=== PATIENT | male | born 1955 | race Caucasian/White ===

== ENCOUNTER 2019-04-24 18:59 | Inpatient (IN) | payer OTHER ==
[~2019-04-24] VITALS: Ht 165.1 cm; Wt 66.2 kg
[2019-04-24 19:18] VITALS: BP 129/95
[2019-04-24] MEDS ORDERED: SODIUM CHLORIDE FLUSH 10 ML SYR IVF STA (19:25)
--- NOTE | 2019-04-24 19:30 | NUR ---
EKG PERFORMED IN TRIAGE ROOM
--- NOTE | 2019-04-24 21:48 | NUR ---
PT AMBULATED TO BED 06.
--- NOTE | 2019-04-24 21:52 | NUR ---
64/M PRESENTED TO ED BIB SELF ACCOMPANIED BY . A/O X4 PERSON PLACE TIME AND EVENT. C/O CHEST PAIN, ABDOMINAL PAIN X LAST NIGHT 6/10 PAIN. HEADACHE X 30 MINS AGO 10/10 PAIN. PT STATES THAT HE ATE LENTIL SOUP, HE BEGAN TO HAVING MID CHEST PAIN RADIATING TO ABDOMEN. PT TOOK MYLANTA LAST NIGHT WITH NO RELIEF. PT TOOK PEPCID BUT NO RELIEF. PT DENIES FEVER, SOB, N/V/D. FULL CLEAR SPEECH, NO FACIAL ASYMMETRY, AMBULATED WITH STEADY GAIT. NO SIGNS OF DISTRESS. MED HX HTN, HLD. RX ATENOLOL. DENIES ALLERGIES. WILL CONTINUE TO MONITOR.
--- NOTE | 2019-04-24 22:02 | NUR ---
LAB AT BEDSIDE
[2019-04-24 22:42] LABS: BASOPHILS % (AUTO) 0.3 % (0.0-2.0); EOSINOPHILS % (AUTO) 0.4 % (0.0-4.0); HEMATOCRIT 49.3 % (36-52); HEMOGLOBIN 16.3 g/dL (12.0-18.0); LYMPHOCYTES # (AUTO) 1.3 K/uL (2.0-11.5); MEAN CORPUSCULAR HEMOGLOBIN 30 pg (27-31); MEAN CORPUSCULAR HGB CONC 33 g/dL (33-37); MEAN CORPUSCULAR VOLUME 90.5 fL (80-94); MONOCYTES # (AUTO) 1.3 K/uL (0.8-1.0); MONOCYTES % (AUTO) 11.3 % (1.7-9.3); PLATELET COUNT (AUTO) 179 K/uL (140-450); RED BLOOD CELL COUNT(AUTO) 5.45 MIL/uL (4.20-6.10); WHITE BLOOD COUNT (AUTO) 11.6 K/uL (4.8-10.8)
[2019-04-24 22:54] LABS: ANION GAP 12.5 (8-16); CARBON DIOXIDE 27.8 mmol/L (21-32); POTASSIUM 4.3 mmol/L (3.5-5.1)
[2019-04-24 23:01] LABS: ALBUMIN 3.7 g/dL (3.4-5.0)
[2019-04-24] MEDS ORDERED: ATEN50TA8 PO (23:43)
[2019-04-25] MEDS ORDERED: ASPIRIN 81 MG TAB.CHEW PO ONE (00:10)
--- NOTE | 2019-04-25 00:18 | NUR ---
RECEIVED REPORT FROM MARI VILLA. PT RESTING IN BED, IN STABLE CONDITION AT THIS TIME.
[2019-04-25] MEDS ORDERED: MORPHINE SULFATE 4 MG/ML SYR IVP PRN (01:05)
[2019-04-25] MEDS ORDERED: HEPARIN PER PHARMACY MC PRN (01:05)
[2019-04-25] MEDS ORDERED: MORPHINE SULFATE 2 MG/ML SYR IVP PRN (01:05)
[2019-04-25] MEDS ORDERED: LORazepam 2 MG/ML VIAL IVP PRN (01:05)
[2019-04-25] MEDS ORDERED: ONDANSETRON 4 MG/2 ML VIAL IVP PRN (01:05)
--- NOTE | 2019-04-25 01:25 | NUR ---
Patient will be admitted to care of CUBA GOVEA. Admited to TELE. Will go to room 111B. Belongings list completed. Report to CANDELARIA GUERRA. VSS. IN STABLE CONDITION. AMBULATED TO BED WITH STEADY GAIT.
--- NOTE | 2019-04-25 01:45 | NUR ---
ADMITTED THIS 64 YEAR OLD MALE FROM ER PER IVÁN WITH CC OF CHEST PAIN, AMBULATED TO BED WITH STEADY GAIT, ASSESSMENT DONE, AAOX4, VITAL SIGNS STABLE, DENIES CHEST PAIN BUT COMPLAINING OF HEADACHE, WILL MEDICATE PRN, ORIENTED TO ROOM AND CALL LIGHT, PLAN OF CARE DISCUSS, SAFETY MEASURES IN PLACE, PER PT HE WANTS HIS WALLET CONTAINING MONEY AND CARD TO BE PUT IN A SAFE, ADMITTING MADE AWARE, CALL LIGHT WITHIN REACH.
[2019-04-25 02:00] VITALS: BP 127/82
[2019-04-25] MEDS: ACETAMINOPHEN 325 MG TAB PO PRN ×2 (02:14→14:01)
--- NOTE | 2019-04-25 02:30 | NUR ---
PT MEDICATED WITH TYLENOL PO FOR HEADACHE, PT CHANGED HIS MIND IN REGARDS TO HIS WALLET, HE WANTS TO KEEP IT TO HIMSELF AND WILL GIVE IT TO HIS WHEN SHE COMES BACK, ALL NEEDS ATTENDED.
[2019-04-25] MEDS: hePARIN / DEXT 5% PREMIX 250 ML IV SCH ×2 (02:48→14:01)
--- NOTE | 2019-04-25 03:00 | NUR ---
HEPARIN DRIP STARTED AT 8ML/H, PTT TO BE DRAWN AT 0848, MONITORED CLOSELY.
[2019-04-25 04:00] VITALS: BP 102/73
--- NOTE | 2019-04-25 04:00 | NUR ---
PT SLEEPING, EASILY AROUSABLE, VITAL SIGNS STABLE, DENIES CHEST PAIN, HEPARIN DRIP ON GOING, MONITORED CLOSELY.
--- NOTE | 2019-04-25 07:10 | NUR ---
PT AWAKE, NO SIGNS OF DISTRESS, BEDSIDE REPORT GIVEN TO MARI DEJESUS FOR CONTINUITY OF CARE.
--- NOTE | 2019-04-25 07:10 | NUR ---
RECEIVED BEDSIDE REPORT FROM MARI GAONA. PT STABLE, AWAKE, ALERT AND ORIENTED X4. NO SIGNS OF DISTRESS NOTED, DENIES PAIN OR SOB. NO REDNESS, SWELLING, OR INFLAMMATION NOTED ON IV SITE. HEPARIN DRIP RUNNING AT 8 ML/HR. CALL PÉREZ WITHIN REACH. BED IN LOWEST POSITION. SAFETY MEASURES IN PLACE. PLAN OF CARE REVIEWED.
[2019-04-25 08:00] VITALS: BP 119/87
--- NOTE | 2019-04-25 08:24 | NUR ---
PATIENT HAS BEEN SCREENED AND CATEGORIZED MODERATE NUTRITION RISK. PATIENT WILL BE SEEN WITHIN 3-5 DAYS OF ADMISSION. 04/27/[address]
[2019-04-25] MEDS ORDERED: ATENOLOL 50 MG TAB PO SCH (09:00)
--- NOTE | 2019-04-25 09:43 | NUR ---
ADMINISTERED SCHEDULED MEDICATION, PT TOLERATED WELL. WILL CONTINUE TO MONITOR. DR VALDEZ AT THE BEDSIDE.
--- NOTE | 2019-04-25 10:00 | NUR ---
CALLED [facility] SPOKE WITH NICOLAS , REGARDING THE TRANSFER ,SHE STATED ONCE WE GIVE THE AUTH WILL BE READY TO ACCEPT PT.
--- NOTE | 2019-04-25 10:15 | NUR ---
CALLED LAB TO FOLLOW UP REGARDING PT'S PTT. PER HILDA, LAB IS STILL PENDING. WILL FOLLOW UP AGAIN.
[2019-04-25] MEDS ORDERED: ATI2I IVP (11:27)
[2019-04-25] MEDS ORDERED: Heparin Per Pharmacy MC (11:27)
[2019-04-25] MEDS ORDERED: HEPA500056 IV (11:27)
[2019-04-25] MEDS ORDERED: MORP2SOL18 IVP (11:27)
[2019-04-25] MEDS ORDERED: ACET-1182 PO (11:27)
[2019-04-25] MEDS ORDERED: ATEN50TA2 PO (11:27)
[2019-04-25] MEDS ORDERED: HEPA-133 IV (11:27)
[2019-04-25] MEDS ORDERED: ASPI81CT95 PO (11:27)
[2019-04-25] MEDS ORDERED: ONDA2SOL45 IVP (11:27)
--- NOTE | 2019-04-25 11:45 | NUR ---
VINCENT MORA FROM [facility] WILL CALL BACK FOR AUTHORIZATION
[2019-04-25 12:00] VITALS: BP 112/85
--- NOTE | 2019-04-25 12:00 | NUR ---
VITAL SIGNS TAKEN, PT STABLE. FAMILY AT THE BEDSIDE.
--- NOTE | 2019-04-25 13:46 | NUR ---
PTT LAB JUST CAME BACK, 25.6. HEPARIN BOLUS 4,000 UNITS GIVEN AND HEPARIN DRIP RATE CHANGED TO 10.6 ML/HR PER PROTOCOL. WILL CONTINUE TO MONITOR. NO SIGNS OF BLEEDING NOTED.
--- NOTE | 2019-04-25 13:58 | NUR ---
I RECEIVED A CALL FROM VINCENT NAIR OF [facility] TO GO TO [facility] AIRPL[facility] FIRST OFFICER ,PACKAGE WORKER WILL BE DR SHRUTHI FREDERICK AUTH FOR [facility] [id number] AND FOR [facility] AUTH [id number] .ARRANGED TRANSPORT WITH [facility] TRIMMER OPERATOR THREE KNIFE TIME WITH IN ONE HOUR. NOTIFIED MARI HERRERA.
--- NOTE | 2019-04-25 14:10 | NUR ---
PTT ORDERED TODAY 04/25/19 TO BE DONE AT 1946 PER HEPARIN DRIP PROTOCOL.
--- NOTE | 2019-04-25 14:30 | NUR ---
REPORT GIVEN TO SHANT FROM CARDIAC NATUROPATHIC PHYSICIAN AT [facility]. IMAGING CD INCLUDED IN TRANSPORT FOLDER.
--- NOTE | 2019-04-25 15:00 | NUR ---
D/C INSTRUCTIONS AND PAPERWORK GIVEN. PT AND PT'S DAUGHTER ADONIS VERBALIZED UNDERSTANDING. QUESTIONS AND CONCERNS WERE ADDRESSED. IV KEPT INTACT DUE TO PT IS TRANSFERRING TO [facility]. PT STABLE, AAOX4, DENIES PAIN OR SOB, AMBULATES WITH STEADY GAIT, COMMUNICATES APPROPRIATELY WITH STAFF. SKIN INTACT, PT REFUSED PNEUMONIA VACCINE, FLU VACCINE RECEIVED IN 2019. PER PT, HE HAS ALL OF BELONGINGS, DAUGHTER AT BEDSIDE AWARE. PT PICKED UP BY [facility] TO BE TAKEN TO CARDIAC WASTE EXAMINER AT [facility].
[2019-04-26] MEDS ORDERED: ASPIRIN 81 MG TAB.CHEW PO SCH (09:00)
== END 2019-04-25 15:00 | disposition short-term general hospital (02) | DRG 282 ==
LOC: MED 18:59 → MTU 04-25 01:07
PROVIDERS: ADMIT Internal Medicine Pulmonary Disease; ATTEND Internal Medicine Pulmonary Disease
DX: I21.4 Non-ST elevation (NSTEMI) myocardial infarction (principal); I25.10 Atherosclerotic heart disease of native coronary artery without angina pectoris; E78.5 Hyperlipidemia, unspecified; I11.9 Hypertensive heart disease without heart failure; Z79.899 Other long term (current) drug therapy
CPT/HCPCS: 36415; 71045; 80053; 84484; 85025; 85730; 87081; 93005; 99285; J1644